=== PATIENT | female | born 1940 | race African-American/Black ===

== ENCOUNTER 2023-12-09 10:08 | Emergency (ER) | payer OTHER ==
[2023-12-09 10:48] VITALS: BMI 28.7
[2023-12-09 11:55] LABS: BASO % 1.7 % (0-2.0); EOS % 11.7 % (0-4.5); HEMATOCRIT 33.3 % (32.4-45.2); HEMOGLOBIN 10.9 GM/dL (10.7-15.3); LYMPH % 19.5 % (8-40); MCH 26.8 pg (25.7-33.7); MCHC 32.9 g/dl (32.0-36.0); MEAN CELL VOLUME 81.6 fl (80-96); MEAN PLT VOLUME 9.5 fl (7.5-11.1); MONO % 10.4 % (3.8-10.2); NEUT % 56.7 % (42.8-82.8); PLATELET COUNT 210 10^3/uL (134-434); RBC 4.08 M/mm3 (3.60-5.2); RDW 16.3 % (11.6-15.6); WHITE BLOOD COUNT 4.5 K/mm3 (4.0-10.0)
[2023-12-09 12:00] LABS: INR 1.54 (0.83-1.09); PROTHROMBIN TIME (PATIENT) 17.5 SEC (9.7-13.0)
[2023-12-09 12:57] LABS: ALBUMIN 3.3 g/dl (3.4-5.0); BILIRUBIN,TOTAL 0.7 mg/dL (0.2-1); BLOOD UREA NITROGEN 14.5 mg/dL (7-18); CALCIUM 9.2 mg/dL (8.5-10.1); CREATININE 0.9 mg/dL (0.55-1.3); POTASSIUM 3.8 mmol/L (3.5-5.1); TOT PROT 6.6 g/dl (6.4-8.2)
[2023-12-09 17:50] VITALS: BP 148/82; PULSE 74; RESP 18; TEMP 98.4
== END 2023-12-10 00:02 | disposition home or self-care (01) ==
LOC: JER 10:08
DX: R53.1 Weakness (principal); Z04.3 Encounter for examination and observation following other accident; W19.XXXA Unspecified fall, initial encounter
CPT/HCPCS: 36415; 70450-TC; 72125-TC; 80053; 82962; 84484; 85025; 85610; 85730; 93005; 93010; 99285-25

== ENCOUNTER 2024-01-08 20:37 | Emergency (ER) | payer OTHER ==
[2024-01-08 20:54] VITALS: TEMP 97.7; BMI 34.7
[2024-01-09 02:08] VITALS: BP 158/79; PULSE 80; RESP 21
== END 2024-01-09 05:58 ==
LOC: JER 20:37
DX: S09.90XA Unspecified injury of head, initial encounter (principal); W01.198A Fall on same level from slipping, tripping and stumbling with subsequent striking against other object, initial encounter; W05.0XXA Fall from non-moving wheelchair, initial encounter
CPT/HCPCS: 70450-TC; 72125-TC; 99284-25